=== PATIENT | female | born 1995 | race Caucasian/White ===

== ENCOUNTER → 2017-09-30 13:37 | Outpatient (CLI) | payer SELFPAY ==
[2017-10-03 08:35] LABS: HSV Culture Without Typing Positive (.)
== END ==
PROVIDERS: Visit Provider Obstetrics & Gynecology
DX: R22.9 Localized swelling, mass and lump, unspecified (principal); Z11.3 Encounter for screening for infections with a predominantly sexual mode of transmission
CPT/HCPCS: 87255

== ENCOUNTER → 2018-01-07 16:00 | Outpatient (CLI) | payer OTHER, SELFPAY ==
--- NOTE | 2018-01-07 16:00 | DT_ITS ---
This patient was seen during an EMR downtime January 04, 2018 - January 11, 2018. This patient may have a combination of paper and electronic documentation or all paper documentation. All documentation is viewable within the e-chart portion of [facility] for each patient visit.
== END ==
PROVIDERS: Visit Provider Obstetrics & Gynecology
DX: Z12.4 Encounter for screening for malignant neoplasm of cervix (principal)
CPT/HCPCS: 88175; G0145